=== PATIENT | female | born 1985 | race African-American/Black ===

== ENCOUNTER 2020-02-03 02:38 | Observation (INO) | payer OTHER ==
[~2020-02-03] VITALS: Ht 167.6 cm; Wt 95.7 kg
[~2020-02-03 02:38] MED LIST: ACETAMINOPHEN-1 EAC1 PO; FLAGYL; FLAGYL ER750 MG PO; FLEXERIL PO; FLUOXETINE; HYDROCODONE-AP1 EAC6; IBUPROFEN 800800 M1; IBUPROFEN 800800 MG PO; MEDROLDOSEPACK PO; NORCO 5-325 TA1 EACH PO; PHENTERMINE H37.5 MG; PROMETHAZINE D480 ML PO; PROZAC20 MG PO; ROBAXIN 750 MG750 M1 PO; ZPAK PO
[2020-02-03 02:46] VITALS: BP 130/73
[2020-02-03] MEDS ORDERED: LOMAIRA8 MG PO (02:55)
[2020-02-03] MEDS ORDERED: JUNEL1 EAC1 PO (02:55)
[2020-02-03 03:15] LABS: ABSOLUTE LYMPHOCYTES 3.2 thou/uL (0.8-5.3); ABSOLUTE MONOCYTES 0.5 thou/uL (0.0-1.2); ABSOLUTE NEUTROPHILS 3.9 thou/uL (1.6-8.1); BASOPHILS 0.4 %; EOSINOPHILS 0.5 %; HEMATOCRIT 24.1 % (37.0-47.0); HEMOGLOBIN 7.4 gm/dL (12.0-15.0); LYMPHOCYTES 41.3 %; MCH 21.6 pg (26.0-34.0); MCHC 30.5 g/dL (28.0-37.0); MCV 70.8 fL (80.0-100.0); MONOCYTES 6.7 %; NUCLEATED RBCS 0 /100WBC; PLATELET COUNT* 454 thou/uL (150-400); POLYS 51.1 %; RBC 3.41 mil/uL (4.20-5.00); RDW-CV 21.4 % (10.5-14.5); WBC 7.6 thou/uL (4.0-11.0)
[2020-02-03 03:22] LABS: PROTIME 10.1 Seconds (9.20-11.50)
[2020-02-03 03:31] LABS: CREATININE 0.8 mg/dL (0.6-1.3); POTASSIUM 3.2 mmol/L (3.5-5.1)
[2020-02-03 03:35] LABS: ALBUMIN 2.6 g/dL (3.4-5.0); TOTAL BILIRUBIN 0.2 mg/dL (<0.1-1.0); TOTAL PROTEIN 7.4 g/dL (6.4-8.2)
[2020-02-03 03:59] LABS: HYPOCHROMASIA 2+
[2020-02-03 04:00] LABS: ANISOCYTOSIS 1+; MICROCYTES 2+; OVALOCYTES Occasional
[2020-02-03 04:01] LABS: POLYCHROMASIA Occasional
--- NOTE | 2020-02-03 04:02 | NUR ---
CLARA NOTIFIED UPON PT RETURN FROM CT.PT IS GOING INTO RESTROOM THEREFORE I DID NOT CONNECT HER TO MONITOR
[2020-02-03 06:00] VITALS: BP 103/55
[2020-02-03] MEDS ORDERED: IRON325 PO (08:45)
[2020-02-03 09:39] LABS: % SATURATION 3 % (20-39); IRON 11 ug/dL (50-175)
[2020-02-03 10:00] VITALS: BP 124/66
[2020-02-03 12:29] VITALS: BP 124/66
--- NOTE | 2020-02-03 13:00 | EKG ---
[place] [address] ELECTROCARDIOGRAM REPORT Name: VASILEROSAFARAZ WILSON Room: [address] M.R.#: [id number] Admission: 02/03/20 Attend Phys: Bhaskar Gutierrez, Discharge: Date of : 83 Date of Service: 02/03/20 0309 Report #: [id number] THIS REPORT FOR: //name// [facility] ED Test Date: 2020-02-03 Test Time: 03:09:45 Pat Name: ROSA BURNETTE Department: Room: [facility] Gender: F [employer] Tender: MARCIE : 1985 Requested By: Wilian Shin Order Number: [id number] MD: Robby Dubose Measurements Intervals [place] Rate: 84 P: 9 MN: 137 QRS: 16 QRSD: 94 T: 25 QT: 356 QTc: 421 Interpretive Statements Sinus rhythm ST elev, probable normal early repol pattern Compared to ECG 12/07/2014 10:24:57 ST (T wave) deviation now present Electronically Signed On 02-03-2020 13:00:40 CDT by Robby Dubose [email or web address] <ELECTRONICALLY SIGNED> By: Robby Dubose MD, FACC 02/03/20 1300 8 030 Robby Dubose MD, FAC /EPI
[2020-02-03 13:12] VITALS: BP 124/66
== END 2020-02-03 13:00 | disposition home or self-care (01) ==
LOC: M.ERS 02:38 → M.TBA-ER 04:05
PROVIDERS: Emergency Medicine Emergency Medical Services; Internal Medicine; ADMIT Internal Medicine; ATTEND Internal Medicine
DX: G50.0 Trigeminal neuralgia (principal); R20.0 Anesthesia of skin; F32.9 Major depressive disorder, single episode, unspecified; K58.9 Irritable bowel syndrome, unspecified; E66.9 Obesity, unspecified; M47.9 Spondylosis, unspecified; E87.6 Hypokalemia; D64.9 Anemia, unspecified